=== PATIENT | female | born 1940 | race Caucasian/White ===

== ENCOUNTER 2020-09-13 10:54 | Emergency (ER) | payer MEDICARE, BC, MEDICAID ==
[~2020-09-13] VITALS: Ht 152.4 cm; Wt 49.5 kg
[2020-09-13 11:53] LABS: BASOPHILS % (AUTO) 0.8 % (0-1); EOSINOPHILS % (AUTO) 0.9 % (0-6); HEMATOCRIT 40.3 % (35.0-45.0); HEMOGLOBIN 13.6 g/dl (12.0-16.0); LYMPHOCYTES # (AUTO) 1.9 X10'3 (1.1-4.8); LYMPHOCYTES % (AUTO) 36.7 % (21-51); MEAN CORPUSCULAR HEMOGLOBIN 30.3 PG (27.0-31.0); MEAN CORPUSCULAR HGB CONC 33.6 g/dL (33.0-36.5); MEAN PLATELET VOLUME 7.6 FL (7.4-10.4); MONOCYTES # (AUTO) 0.4 X10'3 (0-0.9); NEUTROPHILS # (AUTO) 2.7 X10'3 (1.8-7.7); NEUTROPHILS % (AUTO) 53.6 % (42-75); PLATELET COUNT 320 X10'3 (140-440); RED BLOOD COUNT 4.48 X10'6 (4.20-5.60); RED CELL DISTRIBUTION WIDTH 15.9 % (11.5-14.5); WHITE BLOOD COUNT 5.1 X10'3 (4.5-11.0)
[2020-09-13 12:07] LABS: ALANINE AMINOTRANSFERASE 7 U/L (12-78); ALBUMIN 3.4 G/DL (3.4-5.0); ALBUMIN/GLOBULIN RATIO 1.1 (1.1-1.5); ALKALINE PHOSPHATASE 94 IU/L (46-116); ANION GAP 14 (8-16); ASPARTATE AMINO TRANSFERASE 20 U/L (10-37); BILIRUBIN,TOTAL 0.5 MG/DL (0.1-1.0); BLOOD UREA NITROGEN 8 MG/DL (7-18); BUN/CREATININE RATIO 13.6 (6.6-38.0); CALCIUM 9.3 MG/DL (8.5-10.1); CHLORIDE 101 MMOL/L (99-107); CREATININE 0.59 MG/DL (0.40-0.90); GLUCOSE 79 MG/DL (70-104); POTASSIUM 3.4 MMOL/L (3.5-5.1); SODIUM 140 MMOL/L (135-145); TOTAL CARBON DIOXIDE 25.5 MMOL/L (24-32); TOTAL PROTEIN 6.5 G/DL (6.4-8.2); eGFR > 90 ML/MIN
[2020-09-13] MEDS ORDERED: iohexol 300mg/ml 100ml inj. ONE (12:21)
[2020-09-13 12:52] LABS: CLARITY,URINE CLOUDY (Clear); COLOR,URINE YELLOW (Yellow); GLUCOSE, URINE NEGATIVE (Neg); KETONES,URINE >=80 mg/dl (Neg); LEUKOCYTE ESTERASE ,URINE TRACE (Neg); NITRITES, URINE POSITIVE (Neg); OCCULT BLOOD,URINE TRACE-INTACT (Neg); PROTEIN,URINE NEGATIVE (Neg)
[2020-09-13 12:59] LABS: UA COLLECTION TYPE STRAIGHT CATH
[2020-09-13 13:00] LABS: BACTERIA,URINE 4+ /HPF (Neg)
[2020-09-13] MEDS ORDERED: traMADol 50MG tablet PO ONE (13:00)
[2020-09-13 13:02] LABS: HYALINE CASTS 0-3 /LPF (NEGATIVE); SQUAMOUS EPITHELIAL CELL,UR FEW /LPF (FEW)
[2020-09-13] MEDS ORDERED: CefTRIAXone/D5W-Rocephin 1gm 50 ML IV ONE (13:40)
[2020-09-13] MEDS ORDERED: LEVO125T8 PO (15:17)
[2020-09-13] MEDS ORDERED: CYCL-1 PO (15:17)
[2020-09-13] MEDS ORDERED: LEVO-146 PO (15:17)
[2020-09-13] MEDS ORDERED: morphine 2 MG/ML inj. syringe IV PRN ×2 (16:00)
[2020-09-13] MEDS ORDERED: HYDROcodone/acetaminophen 10/325mg tab PO PRN (16:00)
[2020-09-13] MEDS ORDERED: magnesium hydroxide 30ml (MOM) UD suspension PO PRN (16:00)
[2020-09-13] MEDS ORDERED: HYDROcodone/acetaminophen 5mg/325mg tablet PO PRN (16:00)
[2020-09-13] MEDS ORDERED: acetaminophen 325mg tablet PO PRN ×2 (16:00)
[2020-09-13] MEDS ORDERED: mag hydrox/Alum hydrox/simeth 30ml oral suspension PO PRN (16:00)
[2020-09-13] MEDS ORDERED: ondansetron/PF 4mg/2ml inj IV PRN (16:00)
[2020-09-13] MEDS ORDERED: cyclobenzaprine 10mg tablet PO PRN (16:05)
--- NOTE | 2020-09-13 17:12 | NUR ---
[facility] [phone] CELL [phone]
[2020-09-13] MEDS ORDERED: docusate sod 100mg capsule PO SCH (20:00)
--- NOTE | 2020-09-13 21:25 | NUR ---
REPORT GIVEN TO JANNY SALINAS AT [facility].
[2020-09-13 21:58] VITALS: BP 156/86
[2020-09-14] MEDS ORDERED: levoTHYROXINE 125mcg tablet PO SCH (08:00)
[2020-09-14] MEDS ORDERED: enoxaparin 40mg/0.4ml syringe SUBCUT SCH (08:00)
--- NOTE | 2020-09-18 08:56 | NUR ---
PT CALLED, NO ANSWER, MESSAGE LEFT TO CALL REGARDING LAB FOR UTI AND NEED FOR ABX.
== END 2020-09-13 21:58 | disposition short-term general hospital (02) ==
LOC: ER 10:54 → ED HOLD 15:59 → UNDOADMIN 15:59 → ER 21:58 → UNDODISIN 22:10
DX: S32.000G Wedge compression fracture of unspecified lumbar vertebra, subsequent encounter for fracture with delayed healing (principal); S22.000G Wedge compression fracture of unspecified thoracic vertebra, subsequent encounter for fracture with delayed healing; N39.0 Urinary tract infection, site not specified; M54.9 Dorsalgia, unspecified; Z20.822 Contact with and (suspected) exposure to COVID-19; Z88.5 Allergy status to narcotic agent; Z88.0 Allergy status to penicillin; Z88.2 Allergy status to sulfonamides; X58.XXXD Exposure to other specified factors, subsequent encounter
CPT/HCPCS: 36415; 71260; 74177; 80053; 81001; 83880; 85025; 87077; 87088; 87186; 87635; 96365; 99285; J0696; Q9967; G0378